=== PATIENT | female | born 1970 | race Caucasian/White ===

== ENCOUNTER 2016-05-03 15:13 | Emergency (ER) | payer MEDICAID ==
--- NOTE | 2016-05-03 15:59 | EDM.PDOC ---
ED HPI NEURO - General Chief Complaint: RETAIL FINANCIAL ANALYST Problem Stated Complaint: EXCESSIVE VAGINAL BLEEDING/2 WEEKS Time Seen by Provider: 05/03/16 15:54 Source of Information: Reports: Patient History Limitations: Reports: No limitations - History of Present Illness INITIAL COMMENTS - FREE TEXT/NARRATIVE: 45-year-old female sent to the ED from [facility] where she had a hemoglobin drawn of 6.6. History suggests that she's been suffering quite significant menorrhagia over the last 2 weeks using a tampon almost every 2-3 hours as well as a maxi pad. Large clots being passed. Of note she is on Plavix after having 3 coronary stents placed in her heart in January of 2016 at [facility]. Before this her cycles have been very irregular. Approaches age 45 is perimenopausal. She has had 3 C-sections 5 para 5 and tubal ligation. She feels weak tired and dizzy. She states she can't stand for more than 5 minutes the kitchen to make supper she gets too weak and dizzy in her legs. She can make it up 12 stairs before she has to stop and rest. Symptom Onset Date: 04/18/16 Timing/Duration: Reports: Day(s):, Getting worse, Gradual onset Location (Neuro Complaint): Reports: generalized Quality (Neuro Complaint): Reports: numbness (Localized weakness.), tingling, weakness (In her hands and her feet at times.). Denies: altered speech Severity: moderate Improves with: Reports: Rest Worsens with: Reports: Other, Movement Context, General: Denies: Activity (Long-standing makes things worse), Exercise , Lifting, Sick contact, Trauma, Other Associated Symptoms: Reports: shortness of breath, weakness, malaise. 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 (see below) (None) - Related Data Allergies/ADRs: Allergies Allergy/AdvReac Type Severity Reaction Status Date / Time No Known Allergies Allergy Verified 05/03/16 15:26 Home Meds: Home Meds atorvaSTATin Calcium [Lipitor] 80 mg PO DAILY 11/06/13 [History] Carvedilol [Coreg] 6.25 mg PO BIDMEALS 05/03/16 [History] Clopidogrel Bisulfate [Plavix] 75 mg PO DAILY 05/03/16 [History] Losartan [Cozaar] 50 mg PO DAILY 05/03/16 [History] Nitroglycerin [Nitrostat] 0.4 mg SL ASDIRECTED PRN 05/03/16 [History] amLODIPine [Norvasc] 5 mg PO DAILY 05/03/16 [History] Past Medical History Cardiovascular History: Reports: High cholesterol, [place], Stents (Had 3 stents placed at [facility] in [facility] in January of 2016. 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 Require D&C after this.) : 5 Para: 4 (Second second ended in miscarriage at 6 months) - Past Surgical History Cardiovascular Surgical History: Reports: Coronary artery stent Female Surgical History: Reports: section (X3. Tubal ligation performed with the last ), D&C (Has time of miscarriage at 6 months second ) Social & Family History - Tobacco Use Smoking Status *Q: Current Every Day Smoker Years of Tobacco use: 28 Packs/Tins Daily: 0.5 - Caffeine Use Caffeine Use: Reports: Soda - Alcohol Use Days Per Week of Alcohol Use: 0 - Recreational Drug Use Recreational Drug Use: No - Living Situation & Occupation Living situation: Reports: Occupation: employed ED ROS GENERAL - Review of Systems Review Of Systems: See Below Constitutional: Reports: malaise, weakness, fatigue. Denies: fever, chills HEENT: Reports: No symptoms Respiratory: Reports: No Symptoms, Shortness of Breath Cardiovascular: Reports: Blood pressure problem, Lightheadedness (Chronic hypertension), Palpitations (Feels her heart working hard in her chest at times. ). Denies: Chest pain, Edema Endocrine: Reports: fatigue ( feels like she could faint at times but has not) GI/Abdominal: Reports: No symptoms : Reports: irregular menses (Heavy heavy periods over the last 2 weeks with using a tampon every 3 hours and a maxi pad 3-4 times daily there is completely soaked.), other Musculoskeletal: Reports: no symptoms Skin: Reports: no symptoms Neurological: Reports: No Symptoms Psychiatric: Reports: No symptoms ED EXAM, NEURO - Physical Exam Exam: See Below Exam Limited By: No limitations General Appearance: alert, WD/WN, no apparent distress, other (Is obviously quite palate in color.) Eye Exam: bilateral eye: other (Conjunctiva are palate.) Ears: normal TMs Nose: normal inspection, nasal deformity, nasal flaring Throat/Mouth: Normal lips, Normal oropharynx, Other (Is missing a good number of his teeth. Dentition are in very poor shape) Head Exam: atraumatic, normocephalic Neck: normal inspection, supple, non-tender, full range of motion. No: lymphadenopathy (L), lymphadenopathy (R) Respiratory/Chest: no respiratory distress, lungs clear, normal breath sounds, no accessory muscle use Cardiovascular: normal peripheral pulses, regular rate, rhythm, no edema, no gallop, no murmur GI/Abdominal: normal bowel sounds, soft, non tender, no organomegaly, no distention, other (Well healed scar Pfannenstiel incision) Neurological: alert, normal mood/affect, normal dorsiflexion, CN II-XII intact, normal plantar flexion, normal gait, normal reflexes, no motor/sensory deficits , oriented x 3 Back Exam: normal inspection, full range of motion Extremities: normal inspection, normal range of motion, non-tender, no pedal edema, normal capillary refill Psychiatric: normal affect, normal mood Skin Exam: Warm, Dry, Intact, No rash, Pallor Course - Vital Signs Last Recorded V/S: Last Vital Signs Temp 36.8 C 05/04/16 01:30 Pulse 79 05/04/16 01:30 Resp 16 05/04/16 01:30 BP 139/115 H 05/04/16 01:30 Pulse Ox 97 05/04/16 01:30 - Orders/Labs/Meds Labs: Laboratory Tests 05/03/16 05/03/16 05/03/16 Range/Units 16:10 16:10 16:10 WBC 9.74 (3.98-10.04) K/mm3 RBC 2.81 L (3.98-5.22) M/mm3 Hgb 6.5 L* (11.2-15.7) gm/L Hct 22.1 L (34.1-44.9) % MCV 78.6 L (79.4-94.8) fl MCH 23.1 L (25.6-32.2) pg MCHC 29.4 L (32.2-35.5) g/dl RDW Std Deviation 47.9 H (36.4-46.3) fL Plt Count 311 (182-369) K/mm3 MPV 9.2 L (9.4-12.3) fl Neutrophils % (Manual) 68 H (40-60) % Band Neutrophils % 3 (0-10) % Lymphocytes % (Manual) 26 (20-40) % Atypical Lymphs % 0 % Monocytes % (Manual) 2 (2-10) % Eosinophils % (Manual) 1 (0.7-5.8) % Basophils % (Manual) 0 L (0.1-1.2) Platelet Estimate Adequate Polychromasia Few Hypochromasia 2+ moderate Poikilocytosis 1+ slight Anisocytosis 2+ moderate Microcytosis 2+ moderate Ovalocytes 1+ slight RBC Morph Comment Not Reportable PT 10.0 (8.0-13.0) SECONDS INR 0.92 APTT 22 (22-36) SECONDS Sodium 140 (136-145) mEq/L Potassium 4.1 (3.5-5.1) mEq/L Chloride 106 (98-107) mEq/L Carbon Dioxide 26 (21-32) mEq/L Anion Gap 12.1 (5-15) BUN 7 (7-18) mg/dL Creatinine 0.8 (0.55-1.02) mg/dL Est Cr Clr Drug Dosing 75.07 mL/min Estimated GFR (MDRD) > 60 (>60) mL/min BUN/Creatinine Ratio 8.8 L (14-18) Glucose 98 (74-106) mg/dL Calcium 8.4 L (8.5-10.1) mg/dL Total Bilirubin 0.2 (0.2-1.0) mg/dL AST 12 L (15-37) U/L ALT 23 (14-59) U/L Alkaline Phosphatase 111 (46-116) U/L Total Protein 6.8 (6.4-8.2) g/dl Albumin 3.5 (3.4-5.0) g/dl Globulin 3.3 gm/dL Albumin/Globulin Ratio 1.1 (1-2) Blood Type Gel Antibody Screen Crossmatch 05/03/16 Range/Units 16:10 WBC (3.98-10.04) K/mm3 RBC (3.98-5.22) M/mm3 Hgb (11.2-15.7) gm/L Hct (34.1-44.9) % MCV (79.4-94.8) fl MCH (25.6-32.2) pg MCHC (32.2-35.5) g/dl RDW Std Deviation (36.4-46.3) fL Plt Count (182-369) K/mm3 MPV (9.4-12.3) fl Neutrophils % (Manual) (40-60) % Band Neutrophils % (0-10) % Lymphocytes % (Manual) (20-40) % Atypical Lymphs % % Monocytes % (Manual) (2-10) % Eosinophils % (Manual) (0.7-5.8) % Basophils % (Manual) (0.1-1.2) Platelet Estimate Polychromasia Hypochromasia Poikilocytosis Anisocytosis Microcytosis Ovalocytes RBC Morph Comment PT (8.0-13.0) SECONDS INR APTT (22-36) SECONDS Sodium (136-145) mEq/L Potassium (3.5-5.1) mEq/L Chloride (98-107) mEq/L Carbon Dioxide (21-32) mEq/L Anion Gap (5-15) BUN (7-18) mg/dL Creatinine (0.55-1.02) mg/dL Est Cr Clr Drug Dosing mL/min Estimated GFR (MDRD) (>60) mL/min BUN/Creatinine Ratio (14-18) Glucose (74-106) mg/dL Calcium (8.5-10.1) mg/dL Total Bilirubin (0.2-1.0) mg/dL AST (15-37) U/L ALT (14-59) U/L Alkaline Phosphatase (46-116) U/L Total Protein (6.4-8.2) g/dl Albumin (3.4-5.0) g/dl Globulin gm/dL Albumin/Globulin Ratio (1-2) Blood Type O POSITIVE Gel Antibody Screen Negative Crossmatch See Detail Meds: Medications Discontinued Medications Generic Name Dose Route Start Last Admin Trade Name Freq PRN Reason Stop Dose Admin Sodium Chloride 1,000 mls @ 100 mls/hr 05/03/16 16:00 05/03/16 17:15 Normal Saline IV 100 mls/hr ASDIRECTED KELTON Administration - Radiology Interpretation Free Text/Narrative:: 45-year-old female presents the ED at the request of her care provider in [facility]. She is having significant menorrhagia over the last 2 weeks with superduper heavy periods requiring a tampon every 3 hours and max as well. This is Dr. hemoglobin is low 6.6 on today's testing. On examination she is pallid and her physical condition correlates with a low hemoglobin. Plan will be to transfuse 4 units packed cells. The problem is that she is on Plavix after having 3 stents placed in her heart in January of 2016. This is contributing to the loss of blood. I spoke with on-call RETAIL FINANCIAL ANALYST --Yas Blackwell. She indicates this patient's benefit from D&C of course because this is certainly the cause of her bleeding. Initially and endometrial ablation is contraindicated with a firm tissue diagnosis to make sure there is no endometrial carcinoma. She feels the best for treatment would be Lupron injection which is not offered through the hospital. She is willing to see her on Friday and carry out this procedure. In time the patient will likely need I suspect 4 units of packed cells and we'll crossmatch her for this. To stay in the hospital overnight as an observation patient to receive blunt and then attend Dr. Blackwell`s clinic on Friday as planned. In the meantime I will have a transvaginal ultrasound done subjective a look at the uterus for leiomyomata as well as the thickness of the endometrial stripe. - Re-Assessments/Exams Free Text/Narrative Re-Assessment/Exam: 05/03/16 17:36 Labs did return and reveal a normal white count of 9.74 with 60% neutrophils and 3% bands. Hemoglobin was low at 6.5 hematocrit 22.1 platelets 311,000. Coags are normal. Sodium is 140 potassium 4.1. The remainder of chemistries are normal. Her blood suggest be ready yet I will therefore have each unit transfused over one hour. They way she will be able to go home tonight. I spoke with the Yas Blackwell in the plan will be to follow up in clinic on Friday for a Lupron injection which will hopefully bring the bleeding per vagina under control. 05/03/16: 18:10: Transvaginal ultrasound did reveal atypical appearing endometrium. It is not appear to be very thick however slightly most extent. Lumbar concern is a enlarged left ovary which is 5 cm x 4.9 cm and appears to be complex. This will have to be followed by serial ultrasound. 05/03/16 19:37 patient is nearly completed her second unit of packed red blood cells without any issues. I will pass along her care to Dr. Butts as it is change of shift. The discharge summary has been written. She will be able to be discharged home as soon as the fourth unit of packed cells has been infuse Departure - Departure Time of Disposition: 02:15 Disposition: Home, Self-Care 01 Condition: fair Clinical Impression: Menorrhagia, premenopausal Anemia Qualifiers: Anemia type: other cause Instructions: Anemia, Nonspecific, Menorrhagia, [id number] Referrals: Zoraida Hoffman, [employer]ENT [Primary Care Provider] - Forms: ED Department Discharge Additional Instructions: Evaluation in the emergency room today in regards to noted anemia with hemoglobin of 6.5 this appears to be secondary to severe menorrhagia or excessive bleeding per vagina over the last 2 weeks. This is being aggravated by current use of Plavix which she will require for your coronary stents. Treatment in the measuring tonight was 4 units of packed red blood cells to bring her hemoglobin back up to around 10 or little better. No abnormal is 14- 15. He followup with RETAIL FINANCIAL ANALYST Dr. Yas Blackwell at [facility] on Friday. You are to phone [phone] to arrange an appointment. The plan is to give you a Lupron injection which is a hormone that we used to help stop having periods. Is not available in the hospital otherwise we would've done this today. She will follow you along to make sure that the bleeding completely quits and that your hemoglobin is maintained. It is important to continue your iron tablets as previously prescribed to rebuild red blood cells.
[2016-05-03] MEDS ORDERED: Sodium Chloride 0.9% 1,000 ML IV SCH (16:00)
--- NOTE | 2016-05-03 17:26 | US ---
Pelvic ultrasound: Multiple real-time images were obtained transvaginally. Uterus is retroverted. Multiple nabothian cysts are seen. Endometrial thickness is 8.6 mm. No myometrial abnormality is seen. Right ovary not well seen. Left ovary appears within normal limits. No free fluid is seen. Measurements: Uterus: Length 6.6 cm, AP height 4.4 cm, transverse width is 4.5 cm Left ovary: 6.2 x 3.4 x 3.8 cm Impression: 1. Nonvisualized right ovary. 2. Incidental nabothian cyst. 3. No additional abnormality is identified on pelvic ultrasound study. Diagnostic code #2 MTDD
[2016-05-04 02:15] VITALS: BP 139/115
== END 2016-05-04 01:35 | disposition home or self-care (01) ==
LOC: JD.ED 15:13
DX: N92.4 Excessive bleeding in the premenopausal period (principal); D64.9 Anemia, unspecified; Z79.899 Other long term (current) drug therapy; E78.00 Pure hypercholesterolemia, unspecified; I25.2 Old myocardial infarction; F17.210 Nicotine dependence, cigarettes, uncomplicated; Z98.51 Tubal ligation status
CPT/HCPCS: 36415; 36430; 76830; 80053; 85025; 85610; 85730; 86850; 86900; 86901; 86922; 96360; 96361; 99284; J7040; P9016

== ENCOUNTER 2024-09-06 12:27 | Emergency (ER) | payer MEDICAID ==
[2024-09-06 12:51] VITALS: BP 165/129; PULSE 97
[2024-09-06 13:30] LABS: BASOPHILS ABSOLUTE AUTO 0.1 K/mm3 (0.0-0.2); BASOPHILS PERCENT AUTO 0.5 % (0.0-1.0); EOSINOPHILS ABSOLUTE AUTO 0.0 K/mm3 (0.0-0.4); EOSINOPHILS PERCENT AUTO 0.2 % (0.0-6.0); IMMATURE GRAN ABSOLUTE AUTO 0.05 K/mm3 (0.00-0.05); IMMATURE GRAN PERCENT AUTO 0.5 % (0.0-0.4); LYMPHOCYTES ABSOLUTE AUTO 2.0 K/mm3 (1.0-4.8); LYMPHOCYTES PERCENT AUTO 19.5 % (24.0-44.0); MEAN PLATELET VOLUME 11.4 fl (9.4-12.3); MONOCYTES ABSOLUTE AUTO 0.7 K/mm3 (0.0-0.8); MONOCYTES PERCENT AUTO 6.9 % (0.0-8.0); NEUTROPHILS ABSOLUTE AUTO 7.3 K/mm3 (1.8-7.7); NEUTROPHILS PERCENT AUTO 72.4 % (41.0-71.0); NRBC ABSOLUTE 0.00 (0.00-0.02); NRBC PERCENT 0.0 % (0.0-0.2); PLATELET COUNT,PLT 182 K/mm3 (150-400); RED BLOOD CELL COUNT 5.09 M/mm3 (4.10-5.30); WHITE BLOOD CELL COUNT,WBC 10.02 K/mm3 (3.9-11.3)
[2024-09-06] MEDS: Ondansetron 4 MG/2 ML SDV IVPUSH ONE (13:49)
[2024-09-06] MEDS: Sodium Chloride 0.9% 10 ML Syringe FLUSH PRN ×2 (13:49→14:51)
[2024-09-06 14:14] LABS: A/G RATIO 1.0 (1-2); ALANINE AMINOTRANSFERASE,ALT 95.0 U/L (14-59); ASPARTATE AMNIOTRANSFERASE,AST 98.0 U/L (15-37); BILIRUBIN TOTAL 1.0 mg/dL (0.2-1.0); BLOOD UREA NITROGEN,BUN 25.0 mg/dL (7-18); CARBON DIOXIDE,CO2 25.0 mEq/L (21-32); CHLORIDE,CL 101.0 mEq/L (98-107); CREATININE 1.8 mg/dL (0.55-1.02); EST CRCL DRUG DOSING (CG) 27.93 mL/min; ESTIMATED GFR 33.0 mL/min (>60); GLUCOSE RANDOM 104.0 mg/dL (70-99); POTASSIUM,K 4.3 mEq/L (3.5-5.1); PROTEIN TOTAL,TP 6.9 g/dl (6.4-8.2); SODIUM,NA 137.0 mEq/L (136-145); TROPONIN I HIGH SENSITIVITY 34.0 pg/mL (<=51)
[2024-09-06] MEDS: Iopamidol 755 Mg/ML 100 ML Bottle IVPUSH ONE (14:51)
[2024-09-06] MEDS: Labetalol 100 MG/20 ML MDV IVPUSH ONE (15:11)
[2024-09-06 16:48] LABS: TSH 2.581 uIU/mL (0.358-3.74)
[2024-09-06] MEDS: Furosemide 40 MG/4 ML VIAL IVPUSH ONE (17:08)
== END 2024-09-06 17:14 | disposition critical access hospital (66) ==
LOC: JD.ED 12:27 → JD.MS 16:14 → UNDOADMIN 16:14
DX: I11.0 Hypertensive heart disease with heart failure (principal); N28.9 Disorder of kidney and ureter, unspecified; E78.00 Pure hypercholesterolemia, unspecified; I25.2 Old myocardial infarction; F17.210 Nicotine dependence, cigarettes, uncomplicated; Z95.5 Presence of coronary angioplasty implant and graft; Z88.5 Allergy status to narcotic agent
CPT/HCPCS: 36415; 71046; 71275; 80053; 83690; 83735; 83880; 84443; 84484; 85025; 85379; 86140; 93005; 96361; 96374; 96375; 99285; A9270; J1920; J2405; J7030; Q9967